=== PATIENT | male | born 1980 | race Asian ===

== ENCOUNTER 2017-07-28 13:24 | Emergency (ER) | payer OTHER ==
[~2017-07-28] VITALS: Ht 167.6 cm; Wt 66.0 kg
[2017-07-28 13:25] VITALS: BP 145/60; PULSE 103; RESP 18; TEMP 98.9; O2SAT 100
[2017-07-28] MEDS ORDERED: IBUPROFEN 600 MG TAB PO ONE (14:00)
--- NOTE | 2017-07-28 15:03 | PD ---
HPI Chief Complaint: ENT Complaint Time Seen by Provider: 13:44 Travel History International Travel<30 days: No Contact w/Intl Traveler<30days: No Traveled to known affect area: No History of Present Illness HPI Patient is a 36 year old male who comes in complaining of sore throat. He says it is a burning sensation in his throat. He denies fever chills. He said he took Tylenol that helped a little. This started yesterday. He denies runny nose, cough. Severity is mild. [facility] Social History Alcohol Use: No Tobacco Use: No Substance Use: No Allergies-Medications (Allergen,Severity, Reaction): Coded Allergies: aspirin (Verified Adverse Reaction, Unknown, Itching, 07/28/17) Review of Systems General / Constitutional: No: Fever, Chills HENT: Positive: Sore Throat, No: Headaches, Lightheadedness Cardiovascular: No: Chest Pain or Discomfort Respiratory: No: Cough, Shortness of Breath Gastrointestinal: No: Nausea, Vomiting Musculoskeletal: No: Myalgias Skin: No Rash, No Change in Pigmentation Neurologic: No: Weakness, Dizziness Physical Exam Narrative GENERAL: Awake and alert, in no acute distress. SKIN: Focused skin assessment warm/dry. HEAD: Atraumatic. Normocephalic. EYES: Pupils equal and round. No scleral icterus. ENT: Mucous membranes pink and moist. No tonsillar swelling or exudates. Uvula is midline. NECK: Trachea midline. No JVD. CARDIOVASCULAR: Regular rate and rhythm. No murmur appreciated. RESPIRATORY: No accessory muscle use. Clear to auscultation. Breath sounds equal bilaterally. MUSCULOSKELETAL: No obvious deformities. No clubbing. No cyanosis. No edema. NEUROLOGICAL: Awake and alert. No obvious cranial nerve deficits. Motor grossly within normal limits. Normal speech. Data Data Last Documented VS Vital Signs Date Time Temp Pulse Resp B/P (MAP) Pulse Ox O2 Delivery O2 Flow Rate FiO2 07/28/17 13:25 98.9 103 18 145/60 (88) 100 Orders Orders Group A Rapid Strep Screen (07/28/17 13:49) Ibuprofen (Motrin) (07/28/17 14:00) Strep Culture (Group A) (07/28/17 14:05) MDM Medical Decision Making Medical Screen Exam Complete: Yes Emergency Medical Condition: Yes Differential Diagnosis Strep pharyngitis versus viral pharyngitis versus URI Narrative Course Patient is a 36-year-old male comes in complaining of sore throat. Exam shows no acute abnormalities. Swab sent for rapid strep screen, this is negative. Patient given ibuprofen. Advised to take Tylenol or ibuprofen as needed for pain. Advised to try [id number] cold medications as needed. Advised return to the ED as needed for any worsening symptoms. Diagnosis Primary Impression: Viral pharyngitis Patient Instructions: General Instructions, Pharyngitis (ED) Additional Instructions: Take Tylenol or ibuprofen as needed for pain. Try [id number] cold medications. Follow-up with your primary doctor. Return to the ED as needed for any worsening symptoms. Disposition: 01 DISCHARGE HOME Condition: Stable Luz Elena Dubois MD Jul 28, 2017 15:03
== END 2017-07-28 15:38 | disposition home or self-care (01) ==
LOC: NEPD 13:24
DX: J02.8 Acute pharyngitis due to other specified organisms (principal); B97.89 Other viral agents as the cause of diseases classified elsewhere
CPT/HCPCS: 87081; 87880; 99283